=== PATIENT | female | born 1950 | race Caucasian/White ===

== ENCOUNTER 2023-07-22 14:28 | Outpatient (OUT) | payer MEDICARE, SELFPAY | END 2023-07-22 14:29 | disposition home or self-care (01) | LOC: PST 14:29 | PROVIDERS: Visit Provider Surgery | DX: Z01.818 Encounter for other preprocedural examination (principal); R19.5 Other fecal abnormalities ==

== ENCOUNTER 2023-07-31 08:34 | Day surgery (SDC) | payer MEDICARE, OTHER, SELFPAY ==
--- NOTE | 2023-07-31 | OP_ITS ---
OPERATION DATE: ??07/31/2023 PREOPERATIVE DIAGNOSIS:? Positive Cologuard. POSTOPERATIVE DIAGNOSIS:? Rectal polyp, redundant colon. PROCEDURE:? Colonoscopy to cecum with cold forceps polypectomy x1. SURGEON:? Sd Boswell M.D. ANESTHESIA:? Monitored anesthesia care. ESTIMATED BLOOD LOSS:? Less than 1 mL. INDICATIONS AND CONSENT:? Patient is a 73-year-old female presents for positive Cologuard.? Indications, risks, benefits, alternatives of proceeding with colonoscopy were explained extensively to the patient, including the risks of bleeding, colon perforation or anesthetic complications.? All of her questions were answered.? Informed consent was obtained. PROCEDURE:? Patient brought to the operating room, placed in the left lateral decubitus position.? Monitored anesthesia care was provided.? Rectal exam was performed which showed no masses or blood.? The scope was inserted into the anal canal.? Under direct visualization was advanced.? With the aid of abdominal compression, it was advanced to the cecum where cecal markings were clearly identified.? There was noted to be a very tortuous colon with spasm.? Upon withdrawal of the scope, mucosal surfaces were carefully examined.? There were no mass lesions or inflammatory changes.? No significant diverticulosis.? Within the rectum, there was noted to be a 3 mm sessile polyp that was removed with cold biopsy forceps with good hemostasis.? The scope was retroflexed in the anal canal.? There was no significant hemorrhoidal disease.? Scope was then withdrawn.? Patient tolerated procedure well, was sent to recovery room in good condition. Follow up colonoscopy likely in five years, but that will depend on pathology report. CC:? APRYL Sanabria
[2023-07-31 08:56] VITALS: BMI 25.0
[2023-07-31] MEDS: LACTATED RINGER'S SOLUTION 1,000 ML 50 ML IV (09:04)
[2023-07-31 10:56] VITALS: BP 105/68; PULSE 68; RESP 12; TEMP 36.3; O2SAT 98
[2023-07-31 11:10] VITALS: BP 111/78; PULSE 64; RESP 16; O2SAT 98
[2023-07-31 11:25] VITALS: BP 92/66; PULSE 57; RESP 16; O2SAT 100
== END 2023-07-31 11:26 | disposition home or self-care (01) ==
PROVIDERS: PCP Nurse Practitioner; Visit Provider Surgery
PROC: (CPT 45380; principal; 2023-07-31 10:00)
DX: R19.5 Other fecal abnormalities (principal); K62.1 Rectal polyp; I10 Essential (primary) hypertension; M81.0 Age-related osteoporosis without current pathological fracture; E78.00 Pure hypercholesterolemia, unspecified; J30.2 Other seasonal allergic rhinitis; Z98.51 Tubal ligation status; Z79.82 Long term (current) use of aspirin; Z79.899 Other long term (current) drug therapy; Q43.8 Other specified congenital malformations of intestine
CPT/HCPCS: 45380; 88305; J2704

== ENCOUNTER 2025-09-30 09:45 | Emergency (ER) | payer MEDICARE, OTHER, SELFPAY ==
--- OUTSIDE RECORDS SUMMARY | 2025-09-20 23:59 | XMS_ITS | Continuity of Care Document ---
Author Organization [facility] Address [address] [place] [id number] Care Team Providers Care Personal Loan Specialist Name Role Phone Chartiy Mercer Primary Care Physician Encounter FT_AMBFIN [id number] Date(s): 09/20/25 - 09/20/25 [facility] [address] [place] [phone] Encounter Diagnosis Hypercholesteremia(Discharge Diagnosis) - 09/20/25 Hypothyroidism(Discharge Diagnosis) - 09/20/25 BMI 25.0-25.9,adult(Discharge Diagnosis) - 09/20/25 Discharge Disposition: Home (Routine DC) Attending Physician: Charity Castanon Encounter Type: Clinic Allergies, Adverse Reactions, Alerts No Known Allergies Treatment Plan Future Appointments Appointment Date:02/25/2026 02:00:00 PM Scheduled Provider:Abhilash Anaya PA-C [facility] Type:Cardiology Follow Up (FT) Appointment Date:03/21/2026 10:20:00 AM Scheduled Provider:Charity Castanon Location:[facility] Appointment Type: Open Appointment Date:06/22/2026 09:30:00 AM Scheduled Provider: Location:[facility] Appointment Type:FM Medicare Wellness Subsequent Immunizations Given and Recorded VaccineDateStatusRefusal [id number] (COVID-19) Ad26 vaccine/08/24Recorded pneumococcal 13-valent vaccine03/06/19Recorded Not Given VaccineDateStatusRefusal Reasoninfluenza virus vaccine, wsnraglfcki19/17/25Not GivenPatient Refusesinfluenza virus vaccine, inactivated01/21/23Not GivenPatient Refuses Medications alendronate 70 mg Tab See Instructions, TAKE 1 TABLET EVERY 7 DAYS, # 12 tab(s), Refills(s) 3, Pharmacy: [facility], [facility], cm, 01/01/25 9:47:00 EST, Height/Length Dosing, 59.7, kg, 01/01/25 9:47:00 EST, Weight Dosing Start Date: 02/17/25 Status: Ordered Medication Dispense Status: Completed Quantity: 12.0 Unit: tab(s) Total Allowed Fills: 1 Fills Dispensed: 0 amLODIPine 5 mg Tab See Instructions, TAKE 1 TABLET TWICE A DAY, # 180 tab(s), Refills(s) 3, Pharmacy: [facility], 153, cm, 06/21/25 11:25:00 EDT, Height/Length Dosing, 60.2, kg, 06/21/25 11:25:00 EDT, Weight Dosing Start Date: 07/28/25 Status: Ordered Medication Dispense Status: Completed Quantity: 180.0 Unit: tab(s) Total Allowed Fills: 1 Fills Dispensed: 0 Aspirin Low Dose 81 mg oral enteric coated tablet mg tab(s), Oral, Daily, Refills(s) 0 Start Date: 01/17/23 Status: Ordered Medication Dispense Status: Completed Total Allowed Fills: 1 Fills Dispensed: 0 bisoprolol-hydrochlorothiazide 2.5 mg-6.25 mg Tab See Instructions, 180 tab(s), Refill(s) 3, TAKE 1 TABLET TWICE A DAY, [facility], 153, cm, 06/24/24 10:15:00 EDT, Height/Length Dosing, 63.1, kg, 06/24/24 10:15:00 EDT, Weight Dosing Start Date: 09/04/24 Status: Ordered Medication Dispense Status: Completed Quantity: 180.0 Unit: tab(s) Total Allowed Fills: 1 Fills Dispensed: 0 bisoprolol-hydrochlorothiazide 5 mg-6.25 mg Tab 1 tab(s), Oral, BID, 180 tab(s), Refill(s) 0, [facility], 153, cm, 01/01/25 9:47:00 EST, Height/Length Dosing, 59.7, kg, 01/01/25 9:47:00 EST, Weight Dosing Start Date: 01/01/25 Status: Ordered Medication Dispense Status: Completed Quantity: 180.0 Unit: tab(s) Total Allowed Fills: 1 Fills Dispensed: 0 calcium (as carbonate)-magnesium (as chloride) 118 mg-70 mg oral delayed release tablet Refill(s) 0 Start Date: 02/05/23 Status: Ordered Medication Dispense Status: Completed Total Allowed Fills: 1 Fills Dispensed: 0 levothyroxine 25 mcg (0.025 mg) Tab See Instructions, TAKE 1 TABLET DAILY, # 90 tab(s), Refills(s) 3, Pharmacy: [facility], 153, cm, 03/15/25 11:41:00 EDT, Height/Length Dosing, 60.2, kg, 03/15/25 11:41:00 EDT, Weight Dosing Start Date: 05/04/25 Status: Ordered Medication Dispense Status: Completed Quantity: 90.0 Unit: tab(s) Total Allowed Fills: 1 Fills Dispensed: 0 Multi Vitamin+ one, Daily, Refill(s) 0 Start Date: 06/04/23 Status: Ordered Medication Dispense Status: Completed Total Allowed Fills: 1 Fills Dispensed: 0 potassium gluconate Refills(s) 0 Start Date: 06/21/25 Status: Ordered Medication Dispense Status: Completed Total Allowed Fills: 1 Fills Dispensed: 0 Vitamin D3 10 mcg, Daily, Refills(s) 0 Start Date: 06/04/23 Status: Ordered Medication Dispense Status: Completed Total Allowed Fills: 1 Fills Dispensed: 0 Problem List ConditionConfirmationCourseEffective DatesStatusHealth StatusInformantAscending aorta [id number] 24.0-24.9, adultConfirmedResolvedCH (chronic hepatitis)ConfirmedResolvedContact dermatitisConfirmedActiveFatigueConfirmed ActiveHypercholesteremiaConfirmedActiveHTN (hypertension)ConfirmedActive HypothyroidismConfirmedActiveOsteoporosisConfirmedActiveBMI 25.0-25.9,adult ConfirmedActiveWellness examinationConfirmedActiveSeasonal allergic rhinitis ConfirmedActivePositive colorectal cancer screening using Cologuard test ConfirmedActive 1added per 08/21/2023 query response. Procedures ProcedureDateRelated DiagnosisBody SiteStatusColonoscopy07/31/23CompletedTubal hvytreju32/1/91Completed Social History Social History TypeResponseSmoking StatusNever (less than 100 in lifetime);Never ; Concerns about tobacco use in household: No; Smoking Cessation Yes1, 2 entered on: 08/27/25Birth SexFemaleSex RepresentationFemale (finding) 1denies use. 2denies use Hospital Discharge Instructions Follow Up Care 06/21/2025 11:36:15 With:Charity Castanon, [facility], [facility] Address: [address] [place] [address]- When:Within 6 Month(s) Patient Care team information Care Team Personnel Name: Charity Castanon Position: FT Ambulatory - Primary Care - [place] Member Role: Primary Care Physician Address: [address] [place] [phone]- Telecom: Care Team Related Persons Name: BERRY PENDLETON Name: BERRY PENDLETON Insurance Providers Guarantor name: [facility]ETH [facility] [employer] Plan Information #: 1 Payer: MEDICARE Payer Identifier: [id number] Member Number: [id number] Group Number: [id number] Subscriber Identifier: [id number] Relationship to Subscriber: self Coverage Type: MEDICARE Coverage Verification Date: 25 Telecom: [phone] Address: [facility] [address]
[2025-09-30 09:54] VITALS: BP 116/91; PULSE 69; TEMP 37.2; O2SAT 99; BMI 25.1
--- NOTE | 2025-09-30 10:46 | XR_ITS ---
[facility] [place] [id number] Patient Name: JULIETH HOUGH MRN: [id number] date: 1950 Sex: F Assigned Patient Location: ER Current Patient Location: ER Accession/Order Number: [id number] Exam Date: 09/30/2025 11:00 Report Date: 09/30/2025 12:09 At the request of: COLBY PHAN MD Procedure: XR pelvis 1-2V RIGHT FEMUR - 2 views: Pelvis 1 view CLINICAL HISTORY: Atraumatic pain COMPARISON: None FINDINGS: Pelvis is rotated limiting evaluation. No acute bony process is seen. Minimal degenerative changes involving the hips. Additional degenerative changes seen involving the visualized lower lumbar spine and SI joints as well as the pubic symphysis. Right femur: No acute bony process is seen. No focal soft tissue abnormality is noted. Knee joint appears grossly unremarkable. XR/XR pelvis 1-2V IMPRESSION: NO ACUTE PROCESS. Impression dictated by: Pedrito Dennis Jr., D.OMagda 09/30/2025 12:09 PM Dictation Location: [employer] Electronically authenticated by: [id number] Y Date: 09/30/2025 12:09
--- NOTE | 2025-09-30 10:46 | XR_ITS ---
[facility] [place] [id number] Patient Name: JULIETH HOUGH MRN: [id number] date: 1950 Sex: F Assigned Patient Location: ER Current Patient Location: ER Accession/Order Number: [id number] Exam Date: 09/30/2025 11:00 Report Date: 09/30/2025 12:09 At the request of: COLBY PHAN MD Procedure: XR pelvis 1-2V RIGHT FEMUR - 2 views: Pelvis 1 view CLINICAL HISTORY: Atraumatic pain COMPARISON: None FINDINGS: Pelvis is rotated limiting evaluation. No acute bony process is seen. Minimal degenerative changes involving the hips. Additional degenerative changes seen involving the visualized lower lumbar spine and SI joints as well as the pubic symphysis. Right femur: No acute bony process is seen. No focal soft tissue abnormality is noted. Knee joint appears grossly unremarkable. XR/XR femur RT 2V IMPRESSION: NO ACUTE PROCESS. Impression dictated by: Pedrito Dennis Jr., D.OMagda 09/30/2025 12:09 PM Dictation Location: [facility] Electronically authenticated by: [id number] Y Date: 09/30/2025 12:09
--- NOTE | 2025-09-30 10:53 | ED_ITS ---
HPI HPI - General Adult General Chief complaint: Extremity Problem, Nontraumatic Stated complaint: pain on rt thigh and leg Time Seen by Provider: 09/30/25 10:36 Source: patient Mode of arrival: Wheelchair Limitations: no limitations History of Present Illness HPI narrative: 75-year-old female presents for pain in her right inner thigh. She has had it for about 24 hours and there was no associated trauma. It does not go below her knee and her family is worried about a hairline fracture because she has thin bones. No back pain or calf pain or shortness of breath. Related Data Home Medications ?Medication ?Instructions ?Recorded ?Confirmed alendronate 70 mg tablet (Fosamax) 70 mg PO QWEEK 07/0507/31/23 amlodipine 5 mg tablet (Norvasc) 5 mg PO BID 07/22/23 07/31/23 aspirin 81 mg tablet,delayed 81 mg PO DAILY 07/22/23 0 07/31/23 release (Adult Low Dose Aspirin) bisoprolol 2.5 1 tab PO BID 07/22/23 mg-hydrochlorothiazide 6.25 mg tablet calcium-magnesium 158 mg-99 mg 1 tab PO DAILY 07/22/23 07/31/23 tablet cholecalciferol (vitamin D3) 10 10 mcg PO DAILY 07/31/23 mcg (400 unit) capsule levothyroxine 50 mcg capsule 50 mcg PO DAILY 07/22/23 07/22/23 Held on 07/22/23. Instructions: Doctor's Order multivitamin 1 tab PO DAILY 07/22/2307/06 omega 5-dew-qey-fish oil 1,200 mg cap PO DAILY 3 (144 mg-216 mg) capsule (Fish Oil) Previous Rx's ?Medication ?Instructions ?Recorded acetaminophen 300 mg-codeine 30 mg 1 tab PO Q6H PRN pa in 5 days #20 09/30/25 tablet tabs ibuprofen 800 mg tablet 800 mg PO Q8H PRN pain #20 t abs 09/30/25 methocarbamol 500 mg tablet 500 mg PO Q8H PRN pain #20 tabs 09/30/25 Allergies Allergy/AdvReac Type Severity Reaction Status Date / Time No Known Drug Allergies Allergy Verified 09/30/25 09:54 Opioid HPI Opioid Management Most Recent Opioid Data: Last Pain Scale 9 Today, 11:11 Last MAR Pain Assessment Today, 11:11 Review of Systems ROS Narrative A ten point review of systems is negative except as noted above. PFSH PFSH Medical History (Updated 09/30/25 @ 12:18 by Ranulfo Maxwell MD) Hepatitis ?K75.9 - Inflammatory liver disease, unspecified (ICD-10) Seasonal allergic rhinitis ?J30.2 - Other seasonal allergic rhinitis (ICD-10) Hypercholesterolemia ?E78.00 - Pure hypercholesterolemia, unspecified (ICD-10) Positive colorectal cancer screening using Cologuard test ?R19.5 - Other fecal abnormalities (ICD-10) Osteoporosis ?M81.0 - Age-related osteoporosis without current pathological fracture (ICD- 10) Hypertension ?I10 - Essential (primary) hypertension (ICD-10) Fatigue ?R53.83 - Other fatigue (ICD-10) Surgical History (Updated 07/22/23 @ 08:09 by Ayde De La Rosa) History of tubal ligation ?Z98.51 - Tubal ligation status (ICD-10) Family History (Updated 07/22/23 @ 08:09 by Ayde De La Rosa) Other Family history of diabetes mellitus Social History (Updated 07/31/23 @ 08:53 by Ame Troy) Within the past year, how often did you have a drink containing alcohol: never Score interpretation: A score less than 3 is consistent with normal alcohol consumption. Smoking status: Never smoker Non-prescribed substance use: denies use Previous occupational history: RETIRED Highest level of school completed/degree received: high school graduate Little interest or pleasure in doing things: not at all Feeling down, depressed, or hopeless: not at all Exam Narrative Exam Narrative: Nurses note and vital signs reviewed General:The patient appears well and in no apparent distress. Skin:Warm, dry, no pallor noted.There is no rash noted. Head:Normocephalic, atraumatic Eye: Normal conjunctiva, no drainage Ears, Nose, Mouth, and Throat: oral mucosa is moist. Nares patent. Cardiovascular:Regular Rate and Rhythm Respiratory:Patient is in no distress, no accessory muscle use, lungs are clear to auscultation, no wheezing, rales or rhonchi Back:non-tender GI: Soft and nontender including in the bilateral inguinal areas. Musculoskeletal: The right leg is examined. No ankle edema. No calf tenderness. There is no bruise or rash on her thigh. There is a moderate-sized varicose vein present on the right thigh. She has no focal area of tenderness to palpation. No erythema of the thigh Neurological:A&O, normal speech Psychiatric:Cooperative Constitutional Vital Signs, click to edit/add: Last Vital Signs Temp 99 F 09/30/25 09:54 Pulse 69 09/30/25 09:54 Resp 18 09/30/25 09:54 BP 116/91 09/30/25 09:54 Pulse Ox 99 09/30/25 09:54 O2 Del Method Room Air 09/30/25 09:54 Course Vital Signs Vital signs: Vital Signs Temperature 99 F 09/30/25 09:54 Pulse Rate 69 09/30/25 09:54 Respiratory Rate 18 09/30/25 09:54 Blood Pressure 116/91 09/30/25 09:54 Pulse Oximetry 99 09/30/25 09:54 Oxygen Delivery Method Room Air 09/30/25 09:54 Temperature 99 F 09/30/25 09:54 Pulse Rate 69 09/30/25 09:54 Respiratory Rate 18 09/30/25 09:54 Blood Pressure 116/91 09/30/25 09:54 Pulse Oximetry 99 09/30/25 09:54 Oxygen Delivery Method Room Air 09/30/25 09:54 Medical Decision Making MDM Narrative Medical decision making narrative: X-rays are negative as is the D-dimer. At this point I do not suspect DVT. She seems to be feeling improved with IM Toradol and is discharged home on Tylenol 3, ibuprofen, and Robaxin. Treatment diagnosis and follow-up were discussed with the patient. Differential Diagnosis Differential Diagnosis: Muscle strain, DVT, fracture Lab Data Lab results reviewed: Yes I reviewed the patient's lab results Labs: Lab Results 09/30/25 Range/Units 10:54 D-Dimer 0.31 (<=0.59) mg/L FEU Imaging Data Right femur, pelvis x-ray: Radiologist's impression: ITS Impressions Femur X-Ray 09/30/25 10:46 IMPRESSION: NO ACUTE PROCESS. Impression dictated by: Pedrito Dennis Jr., D.O. 09/30/2025 12:09 PM Dictation Location: [facility] Electronically authenticated by: [id number] Y Date: 09/30/2025 12:09 Pelvis X-Ray 09/30/25 10:46 IMPRESSION: NO ACUTE PROCESS. Impression dictated by: Pedrito Dennis Jr., D.O. 09/30/2025 12:09 PM Dictation Location: [place] [address] Electronically authenticated by: [id number] Y Date: 09/30/2025 12:09 Discharge Plan Discharge Chief Complaint: Extremity Problem, Nontraumatic Clinical Impression: Pain in right leg Patient Disposition: Home, Self-Care Time of Disposition Decision: 12:17 Condition: Good Mode of Transportation: Private Vehicle Prescriptions / Home Meds: New acetaminophen-codeine 300-30 mg tablet 1 tab PO Q6H PRN (Reason: pain) 5 Days Qty: 20 0RF methocarbamol 500 mg tablet 500 mg PO Q8H PRN (Reason: pain) Qty: 20 0RF ibuprofen 800 mg tablet 800 mg PO Q8H PRN (Reason: pain) Qty: 20 0RF No Action aspirin [Adult Low Dose Aspirin] 81 mg tablet,delayed release (DR/EC) 81 mg PO DAILY bisoprolol-hydrochlorothiazide 2.5-6.25 mg tablet 1 tab PO BID calcium-magnesium 158-99 mg tablet 1 tab PO DAILY omega 2-gee-hmx-fish oil [Fish Oil] 1,200 (144-216) mg capsule PO DAILY alendronate [Fosamax] 70 mg tablet 70 mg PO QWEEK levothyroxine 50 mcg capsule 50 mcg PO DAILY multivitamin Tablet 1 tab PO DAILY amlodipine [Norvasc] 5 mg tablet 5 mg PO BID cholecalciferol (vitamin D3) 10 mcg (400 unit) capsule 10 mcg PO DAILY Print Language: Swazi Instructions: Leg Pain (ED) Referrals: LINDSAY BENTON [Primary Care Provider, [employer]INE [employer]ENDER] - 1 week
[2025-09-30] MEDS: KETOROLAC TROMETHAMINE 60 MG/2 ML VIAL IM (11:11)
== END 2025-09-30 12:38 | disposition home or self-care (01) ==
PROVIDERS: Emergency Provider Emergency Medicine; PCP Nurse Practitioner
DX: M79.604 Pain in right leg (principal)
CPT/HCPCS: 36415; 72170; 73552; 85378; 96372; 99284; J1885